=== PATIENT | male | born 2000 | race Caucasian/White ===

== ENCOUNTER → 2022-02-16 | Outpatient (CLI) | payer OTHER, SELFPAY ==
[2022-02-16 12:25] LABS: Lipase 67 U/L (73-393)
[2022-02-18 14:09] LABS: Endomysial Antibody IgA Negative (Negative); Immunoglobulin A 82 mg/dL (90-386)
[2022-02-18 16:11] LABS: t-Transglutaminase IgA <2 U/mL (0-3)
== END | disposition home or self-care (01) ==
LOC: BIMLAB 10:47
PROVIDERS: Visit Provider Internal Medicine
DX: R10.9 Unspecified abdominal pain (principal); G89.29 Other chronic pain; R19.5 Other fecal abnormalities; R17 Unspecified jaundice
CPT/HCPCS: 36415; 82784; 83516; 83690; 86255

== ENCOUNTER → 2022-02-27 | Outpatient (CLI) | payer OTHER, SELFPAY ==
--- NOTE | 2022-02-27 10:12 | US_ITS ---
STUDY: ABDOMINAL ULTRASOUND REASON FOR EXAM: Male, 21 years old. Elevated bilirubin, loose stools TECHNIQUE: Transabdominal ultrasound was performed with real-time and static berry scale imaging. TECHNICAL QUALITY: Adequate. COMPARISON: None. FINDINGS: Liver: The liver measures 13.8 cm. There is normal echogenicity of the liver. The bile ducts are within normal limits. There is hepatic color flow. The direction of portal flow is hepatopetal. There is no demonstrated mass lesion. Gallbladder: Normal distended gallbladder. The gallbladder wall measures 1 mm. There is a negative sonographic Burkett''s sign. There is no pericholecystic fluid. There are no gallstones. Common Bile Duct (C.B.D.): The common bile duct measures 4 mm. Pancreas: Normal size of the head, body and tail of the pancreas. There is normal echogenicity of the pancreas. There is no demonstrated pancreatic mass or cyst. Spleen: Normal size of the spleen. The spleen measures 10.1 cm. Right Kidney: Normal size of the right kidney. The right kidney measures 9.0 cm. Normal renal cortex. The right cortex measures 1.0 cm. There is no demonstrated renal mass or cyst. There is no right hydronephrosis. Left Kidney: Normal size of the left kidney. The left kidney measures 10.3 cm. Normal renal cortex. The left cortex measures 1.6 cm. There is no demonstrated renal mass or cyst. There is no left hydronephrosis. Aorta: Normal. I.V.C.: The IVC is patent. There is no ascites. US/Abdomen Complete IMPRESSION: Normal abdominal ultrasound examination. Electronically Signed: Tor Tomas MD at 13:23 [facility] ,
== END | disposition home or self-care (01) ==
LOC: US 10:10
PROVIDERS: PCP Internal Medicine; Referring Provider Internal Medicine; Visit Provider Internal Medicine
DX: R19.5 Other fecal abnormalities (principal); R17 Unspecified jaundice; R10.9 Unspecified abdominal pain; G89.29 Other chronic pain
CPT/HCPCS: 76700

== ENCOUNTER → 2023-04-07 | Outpatient (CLI) | payer OTHER, SELFPAY ==
[2023-04-07 10:43] LABS: Vitamin D,25 Hydroxy 44.2 ng/mL
== END | disposition home or self-care (01) ==
LOC: SL 09:35
PROVIDERS: PCP Internal Medicine; Referring Provider Internal Medicine; Visit Provider Internal Medicine
DX: R29.818 Other symptoms and signs involving the nervous system (principal); G47.10 Hypersomnia, unspecified
CPT/HCPCS: 36415; 82306; 95806

== ENCOUNTER → 2024-01-09 | Outpatient (CLI) | payer OTHER, SELFPAY ==
--- NOTE | 2024-01-09 09:18 | NM_ITS ---
CLINICAL: 23-year-old male with history of low back discomfort. WHOLE BODY 99m Tc MDP RADIONUCLIDE BONE SCINTIGRAPHY COMPARISON: None available FINDINGS: Following the intravenous administration of 27.1 mCi of 99m Tc MDP, whole body bone images reveal: 1. Increased radiotracer concentration is symmetrically apparent in the patellofemoral compartments of both knees, the posterior midline sacrum. 2. The remaining skeletal structures are scintigraphically unremarkable with normal-appearing renal images and urinary bladder activity identified. Symmetric uptake defined in the shoulder articulations is considered normal in a patient of this age group. NM/Bone Scan Whole Body IMPRESSION: 1. The increase in tracer uptake noted in the posterior midline sacrum may be further investigated with magnetic resonance imaging or CT of the lumbar-sacral spine. 2. Facilitated concentration noted in the bilateral knees may represent early onset degenerative arthrosis in the appropriate clinical context. Electronically Signed: Marin York DO at 15:59 EDT ,
== END | disposition home or self-care (01) ==
LOC: NM 09:18
PROVIDERS: PCP Internal Medicine; Referring Provider Orthopaedic Surgery; Visit Provider Orthopaedic Surgery
DX: M51.36 Other intervertebral disc degeneration, lumbar region (principal)
CPT/HCPCS: 78306; A9503

== ENCOUNTER 2024-06-20 10:08 | Emergency (ER) | payer OTHER, SELFPAY ==
[2024-06-20 10:09] VITALS: BP 137/97; PULSE 117; RESP 16; TEMP 36.6; O2SAT 98; BMI 31.4
[2024-06-20 10:53] LABS: Absolute Lymphocyte Count 0.27 X10^3/uL (0.83-4.51); Absolute Neutrophil Count 7.7 X10^3/uL (2.0-7.7); Basophil# 0.02 X10^3/uL; Basophil% 0.2 % (0-1); Hematocrit 46.6 % (40-54); Hemoglobin 16.6 g/dL (13.0-16.5); Lymphocyte # 0.27 X10^3/ul (0.83-4.51); Lymphocyte % 3.2 % (19-41); Mean Corp Hgb Conc 35.6 g/dL (32-36); Mean Corpuscular Hgb 29.9 pg (27.0-32.0); Mean Platelet Vol. 9.1 fl (6.2-12.0); Monocyte# 0.19 X10^3/uL; Monocyte% 2.3 % (0-10); NRBC Flagged by Analyzer 0 % (0-5); POSITIVE DIFFERENTIAL YES; Platelet Count 322 K/mm3 (150-450); RBC Distribution Width CV 12.8 % (11.6-14.6); RBC Distribution Width SD 39.3 fl (35.1-43.9); Red Blood Count 5.55 M/mm3 (4.6-6.2); White Blood Count 8.4 K/mm3 (4.4-11.0)
[2024-06-20] MEDS: 0.9% Normal Saline (1000mL) 1,000 ML 999 ML IV (11:08)
[2024-06-20] MEDS: Ondansetron 4 MG/2 ML Vial IV (11:08)
--- NOTE | 2024-06-20 11:18 | EDS_ITS ---
HPI HPI - GI History of Present Illness Chief Complaint: Nausea/Vomiting/Diarrhea Informant: patient Nausea/Vomiting/Emesis GI Symptom: Positive for Nausea and Vomiting Onset: Yesterday Severity: Moderate Diarrhea/Melena/Hematochezia GI Symptom: Positive for Diarrhea Onset: Today and Yesterday Stool Quality: Positive for Watery Severity: Moderate Associated Symptoms Associated Symptoms: Negative for Dysuria, Frequency, Hematuria or Urgency Narrative Narrative: Healthy 23-year-old male no prior abdominal surgeries. Complains of nausea, vomiting and diarrhea since yesterday. No significant abdominal pain other than some cramping. No dysuria. No fever. Prior similar symptoms: Yes Recent Illness/Hospitalization: No PFSH PFSH Medical History H. 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 Seasonal allergies Home Medications ?Medication ?Instructions ?Recorded ?Last Taken ?Type cyclobenzaprine 5 mg tablet 5 mg PO BID PRN pain #10 t abs 03/30/23 Unknown Rx ondansetron 4 mg disintegrating 4 mg PO Q6H PRN nausea and 06/20/24 Unknown Rx tablet vomiting #7 tabs Allergy/AdvReac Type Severity Reaction Status Date / Time No Known Allergies Allergy Verified 06/20/24 10:11 Family History Father Thyroid cancer Grandmother Myocardial infarction Grandfather Parkinson disease Other CVA (cerebral vascular accident) Surgical History History of wisdom tooth extraction Social History household members: spouse current occupational status: employed current occupation: marketing and public relations manager Smoking Status: Never smoker Electronic Cigarette Use: not used alcohol intake: current alcohol intake frequency: holidays/special occasions only substance use type: does not use what type of physical activity do you participate in: weight training and other details: cardio frequency: 5-6 times per week do you feel safe at home: Yes ROS ROS ED ROS Narrative Nausea, vomiting and diarrhea. Constitutional Constitutional ED: Denies chills or fever(s) ENT ENT ED: Denies ear pain Cardiovascular Cardiovascular: Denies chest pain Respiratory/Chest Respiratory/Chest: Denies cough or dyspnea Gastrointestinal Gastrointestinal: Reports diarrhea, nausea and vomiting; Denies abdominal pain Genitourinary Genitourinary ED: Denies dysuria or hematuria Musculoskeletal Musculoskeletal: Denies arthralgias, back pain, myalgias or neck pain Integumentary Denies abscess or Abrasions Neurologic Neurologic: Denies headache(s), paresthesias or weakness Psychiatric Psychiatric: Denies anxiety, depression or suicidal thoughts Endocrine Endocrinology: Denies polydipsia or polyphagia Hematologic/Lymphatic Hematologic/Lymphatic: Denies easy bleeding, easy bruising or lymphadenopathy Allergic/Immunologic Allergic/Immunologic ED: Denies mouth swelling, tongue swelling or urticaria EXAM Physical Exam Narrative Exam Narrative: 23-year-old male in a hallway chair due to current volume and acuity. Vital signs are stable he is tachycardic at 117. Afebrile. Does not look septic or toxic. H EENT exam given dry reactive light. Mildly dry mucous membranes. Neck nontender no lymphadenopathy. Lungs clear to auscultation bilaterally. Heart tachycardic rate about 117 no murmur. Chest wall ribs nontender. Abdomen soft nontender. No peritoneal signs. No localized tenderness. No hernia or mass. No distention. Back nontender. Moving all 4 extremities. Nontender no edema. Neurologically is awake and alert no focal motor deficits. Const Vital Signs: 06/20/24 10:09 Temperature 97.8 F Temperature Source Temporal Pulse Rate 117 H Respiratory Rate 16 Blood Pressure 137/97 H Blood Pressure Mean 110 Pulse Ox 98 Oxygen Delivery Method Room Air Positive well nourished and well developed; Negative for obese, cachectic, contractures or unkempt General Appearance ED: well developed and NAD; Negative for unkempt, cachectic, contractures or pallor Nutritional Appearance: Negative for cachectic or obese HEENT Reports dry mucous membranes normocephalic and atraumatic; Negative for trauma or tenderness Mouth ED: Yes dry mucous membranes Mouth: dry mucous membranes Eyes PERRL and EOMs intact bilaterally General Eye ED: Negative for pale conjunctiva or scleral icterus Neck no lymphadenopathy, supple and no JVD General: Negative for tenderness Carotids: Negative for other Resp normal respiratory effort and clear to auscultation bilaterally Effort and Inspection: Negative for respiratory distress Auscultation: Negative for rales, rhonchi, wheezes or diminished lung sounds Cardio regular rhythm, S1 normal heart sound, S2 normal heart sound and no murmurs; Negative for regular rate Rate: tachycardic GI non-tender, non-distended and no masses Inspection: Negative for abdominal distention Auscultation: normoactive bowel sounds Palpation: soft; Negative for tender, guarding, hernia, mass, pulsatile mass or rebound tenderness present Back/Spine no CVA tenderness General Back: Negative for CVA tenderness Cervical Spine: Negative for cervical spine tenderness Thoracic Spine / Upper Back: Negative for thoracic spinal tenderness Lumbar Spine / Lower Back: Negative for lumbar spinal tenderness Coccyx: Negative for other Extremity full ROM General Extremety ED: Negative for edema or tenderness General Extremity: Negative for edema Neuro CN's II-XII intact bilaterally and moves all extremities Sensorium / Orientation: alert, oriented to person, oriented to place and oriented to time; Negative for orientation impaired, confused, lethargic or stuporous Motor Exam: strength 5/5 throughout; Negative for general weakness Psych mental status grossly normal and thought process normal Appearance: Negative for unkempt Attitude: No agitated Mood & Affect: Negative for depressed, anxious or tearful Skin no wounds General Skin Exam: Negative for jaundice or pallor Lesions: no lesions Rashes: no rashes Trauma: Negative for abrasion Nails: Negative for discolored MDM MDM MDM Narrative Medical decision making narrative: 23-year-old male with viral gastroenteritis. Receiving IV fluids. Nursing protocol did a COVID and flu which was negative. His initial CBC is unremarkable. Patient will be given IV fluids times a liter and Zofran p.o. fluid challenge and reassess. Repeat exam at 1210 [address] patient's feeling better. Nausea is resolved. Is drinking ice water. Repeat abdominal exam is nontender benign. He is comfortable being discharged home. To be treated as a viral gastroenteritis. Sent home with a prescription for Zofran. Lab Data Attestation: I reviewed the patient's lab results. Lab results narrative: CBC shows a white count of 8. H&H is 16 and 46. Platelets 322. Chemistries show gap 14. BUN 18 creatinine 1.32. Glucose 138. COVID, flu and RSV are negative. Labs: Laboratory Results - last 24 hr 06/20/24 10:35 WBC 8.4 RBC 5.55 Hgb 16.6 H Hct 46.6 MCV 84.0 MCH 29.9 MCHC 35.6 RDW Std Deviation 39.3 RDW Coeff of Felix 12.8 Plt Count 322 MPV 9.1 Immature Gran % (Auto) 2.300 H Neut % (Auto) 92.0 H Lymph % (Auto) 3.2 L Zavala % (Auto) 2.3 Eos % (Auto) 0.0 Baso % (Auto) 0.2 Absolute Neuts (auto) 7.7 Absolute Lymphs (auto) 0.27 L Nucleated RBC % 0 Sodium 138 Potassium 4.3 Chloride 102 Carbon Dioxide 22.4 Anion Gap 14 BUN 18 Creatinine 1.32 H Estim Creat Clear Calc 104.07 Est GFR (MDRD) Non-Af 77 BUN/Creatinine Ratio 13.9 Glucose 138 H Calcium 9.9 Discharge Plan Triage Chief Complaint: Nausea/Vomiting/Diarrhea ED Provider: Rustam Young Dx/Rx/DC Orders Clinical Impression: Viral gastroenteritis Instructions: ED Gastroenteritis, Viral (Adult) Prescriptions: New ondansetron 4 mg tablet,disintegrating 4 mg PO Q6H PRN (Reason: nausea and vomiting) Qty: 7 0RF No Action cyclobenzaprine 5 mg tablet 5 mg PO BID PRN (Reason: pain) Qty: 10 0RF Primary Care Provider: Lorena Avalos NP Referrals: Lorena Avalos NP, NUCLEAR MEDICINE PHYSICIAN-C [Primary Care Provider] - 3-5 Days if not improving Activity Restrictions/Additional Instructions: Plenty of fluids and rest. Slowly increase your diet as tolerated. Zofran as needed for nausea. You can swaddle it dissolve under your tongue. If not improving follow-up with primary care provider if unable to keep fluids down or feeling worse return to the emergency department. Print Language: [place] Disposition Disposition: Home, Self Care
[2024-06-20 11:21] LABS: Anion Gap 14 (5-15); BUN 18 mg/dL (4-19); BUN/Creat Ratio 13.9 RATIO (10-20); Calcium,Total 9.9 mg/dL (7.6-11.0); Carbon Dioxide 22.4 mmol/L (21.0-32.0); Chloride 102 mmol/L (98-108); Creatinine, Serum 1.32 mg/dL (0.70-1.20); EST Glomerular Filtration Rate 77 (>60); Estimated Creatinine Clearance 104.07 ml/min (50-250); Glucose 138 mg/dL (70-99); Potassium 4.3 mmol/L (3.3-5.1); Sodium Level 138 mmol/L (133-145)
== END 2024-06-20 12:49 | disposition home or self-care (01) ==
PROVIDERS: Emergency Provider Emergency Medicine; PCP Internal Medicine; Visit Provider Emergency Medicine
DX: A08.4 Viral intestinal infection, unspecified (principal)
CPT/HCPCS: 80048; 85025; 87631; 96361; 96374; 99283; A4216; J2405